=== PATIENT | male | born 1980 | race Caucasian/White ===

== ENCOUNTER 2017-04-23 19:00 | Emergency (ER) | payer OTHER ==
[~2017-04-23] VITALS: Ht 170.2 cm; Wt 80.7 kg
[~2017-04-23 19:00] MED LIST: CEL20 PO; KLO0.5 PO; KLO1 PO; KLONOPIN1 MG PO; KLONOPIN2 MG PO; MIRTAZAPINE15 MG PO; NOR10T PO; PAROXETINE HY37.5 MG PO; PER5 PO; PERCOCET1 TA2 PO; PRILOSEC20 MG PO; PRILOSEC40 MG PO; SULFAMETH/TRIME1 TA1 PO; VIC PO; XAN1 PO; ZOF4 PO; [UNRECOGNIZED DRUG - CODE] PO
[2017-04-23 19:53] LABS: PLATELET COUNT 193 x10^3mcL (130-400); RED CELL DISTRIBUTION WIDTH 13.9 % (11.5-14.5)
[2017-04-23 19:55] LABS: UA SPECIFIC GRAVITY >=1.030 (1.005-1.035); microscopic required? YES; urine erythrocyte 3+ (NEGATIVE)
[2017-04-23 20:02] LABS: CALCIUM 8.3 mg/dL (8.5-10.1); CARBON DIOXIDE 24.4 mmol/L (21-32); CHLORIDE SERUM 105 mmol/L (98-107); CREATININE SERUM 0.8 mg/dL (0.7-1.3); GFR1 > 60 mL/min; GLUCOSE SERUM 109 mg/dL (74-106); POTASSIUM SERUM 3.7 mmol/L (3.5-5.1); SODIUM SERUM 140 mmol/L (136-145)
[2017-04-23 22:11] VITALS: BP 110/69
[2017-04-24] MEDS ORDERED: PEPCID20 MG PO (23:53)
[2017-04-24] MEDS ORDERED: CLONAZEPAM2 MG PO (23:54)
[2017-04-24] MEDS ORDERED: ZOLOFT100 MG PO (23:55)
[2017-04-24] MEDS ORDERED: OMEPRAZOLE40 M1 PO (23:56)
[2017-04-24] MEDS ORDERED: CLARITIN10 MG PO (23:58)
== END 2017-04-23 22:11 | disposition home or self-care (01) ==
LOC: ED 19:00
PROVIDERS: Emergency Medicine
DX: N20.1 Calculus of ureter (principal); Z88.1 Allergy status to other antibiotic agents; Z88.8 Allergy status to other drugs, medicaments and biological substances; Z79.899 Other long term (current) drug therapy
CPT/HCPCS: J2270; J2405; J7030; Q0092

== ENCOUNTER 2017-04-24 18:06 | Inpatient (IN) | payer OTHER ==
[~2017-04-24] VITALS: Ht 170.2 cm; Wt 81.2 kg
[2017-04-24 19:37] LABS: UA SPECIFIC GRAVITY >=1.030 (1.005-1.035); microscopic required? YES; urine erythrocyte 3+ (NEGATIVE)
[2017-04-24 19:59] LABS: BASOPHIL % 0.4 % (0-2); PLATELET COUNT 182 x10^3mcL (130-400)
[2017-04-24 20:12] LABS: CALCIUM 8.2 mg/dL (8.5-10.1); CARBON DIOXIDE 27.4 mmol/L (21-32); CHLORIDE SERUM 107 mmol/L (98-107); CREATININE SERUM 0.7 mg/dL (0.7-1.3); GFR1 > 60 mL/min; GLUCOSE SERUM 104 mg/dL (74-106); POTASSIUM SERUM 3.9 mmol/L (3.5-5.1); SODIUM SERUM 141 mmol/L (136-145)
[2017-04-24 20:17] LABS: ALBUMIN 3.3 g/dL (3.4-5.0); ALKALINE PHOSPHATASE 77 U/L (46-116); ALT/SGPT 25 U/L (16-63); AST/SGOT 14 U/L (15-37); BILIRUBIN TOTAL 0.1 mg/dL (0.20-1.00)
[2017-04-24] MEDS ORDERED: PEPCID20 MG PO (23:53)
[2017-04-24] MEDS ORDERED: CLONAZEPAM2 MG PO (23:54)
[2017-04-24] MEDS ORDERED: ZOLOFT100 MG PO (23:55)
[2017-04-24] MEDS ORDERED: OMEPRAZOLE40 M1 PO (23:56)
[2017-04-24] MEDS ORDERED: CLARITIN10 MG PO (23:58)
[2017-04-25 00:21] LABS: T3 TOTAL 0.85 ng/mL
[2017-04-25 00:36] LABS: MAGNESIUM 1.9 mg/dL (1.8-2.4)
[2017-04-25 00:53] LABS: AMPHETAMINE QUAL UR NONE DETECTED (NEG <=1000)
[2017-04-25 01:42] LABS: T4(THYROXINE) 5.5 ug/dL (4.7-13.3)
[2017-04-25 01:43] LABS: FREE T4 0.88 ng/dL (0.76-1.46)
[2017-04-25 02:28] VITALS: BP 115/79
[2017-04-25 06:28] LABS: CALCIUM 7.9 mg/dL (8.5-10.1); CARBON DIOXIDE 27.5 mmol/L (21-32); CHLORIDE SERUM 108 mmol/L (98-107); CREATININE SERUM 0.6 mg/dL (0.7-1.3); GFR1 > 60 mL/min; GLUCOSE SERUM 83 mg/dL (74-106); POTASSIUM SERUM 4.2 mmol/L (3.5-5.1); SODIUM SERUM 143 mmol/L (136-145)
[2017-04-25 06:54] LABS: BASOPHIL % 0.8 % (0-2); PLATELET COUNT 141 x10^3mcL (130-400); RED CELL DISTRIBUTION WIDTH 13.8 % (11.5-14.5)
[2017-04-25 08:00] VITALS: BP 135/90
[2017-04-25 14:00] VITALS: BP 105/64
[2017-04-25 18:08] VITALS: BP 120/85
[2017-04-25 20:42] VITALS: BP 110/68
[2017-04-26 05:44] VITALS: BP 104/66
[2017-04-26 07:25] LABS: PHOSPHOROUS 3.7 mg/dL (2.5-4.9)
[2017-04-26 07:45] VITALS: BP 104/72
[2017-04-26] MEDS ORDERED: FLO4 PO (15:02)
[2017-04-26] MEDS ORDERED: CYCLOBENZAPRINE5 MG PO (15:03)
[2017-04-26] MEDS ORDERED: PYR100 PO (15:05)
[2017-04-26] MEDS ORDERED: LAC PO (15:05)
[2017-04-26] MEDS ORDERED: MAC100 PO (15:06)
[2017-04-26] MEDS ORDERED: NOR10T PO (15:19)
[2017-04-26 15:35] VITALS: BP 104/72
== END 2017-04-26 15:53 | disposition home or self-care (01) | DRG 465 ==
LOC: ED 18:06 → MU 04-25 01:20 → DU 04-25 01:20 → MU 04-26 13:11
PROVIDERS: Emergency Medicine; Student in an Organized Health Care Education/Training Program; ADMIT Family Medicine
DX: N20.0 Calculus of kidney (principal); N17.0 Acute kidney failure with tubular necrosis; F41.9 Anxiety disorder, unspecified; E78.5 Hyperlipidemia, unspecified; Z68.28 Body mass index [BMI] 28.0-28.9, adult; F43.10 Post-traumatic stress disorder, unspecified; R31.9 Hematuria, unspecified; K21.9 Gastro-esophageal reflux disease without esophagitis; N39.0 Urinary tract infection, site not specified; Z88.8 Allergy status to other drugs, medicaments and biological substances
CPT/HCPCS: 76770; 83880; 84439; J0696; J1170; J2270; J2405; J7030; Q0092; Q0162

== ENCOUNTER 2017-04-26 20:19 | Emergency (ER) | payer OTHER ==
[~2017-04-26 20:19] MED LIST changes: +CLARITIN10 MG PO; +CLONAZEPAM2 MG PO; +CYCLOBENZAPRINE5 MG PO; +FLO4 PO; +LAC PO; +MAC100 PO; +OMEPRAZOLE40 M1 PO; +PEPCID20 MG PO; +PYR100 PO; +ZOLOFT100 MG PO
[2017-04-26 21:10] LABS: microscopic required? YES; urine erythrocyte NEGATIVE (NEGATIVE)
[2017-04-26 21:16] LABS: BASOPHIL % 1.2 % (0-2); PLATELET COUNT 176 x10^3mcL (130-400); RED CELL DISTRIBUTION WIDTH 13.4 % (11.5-14.5)
[2017-04-26 21:22] LABS: CALCIUM 8.3 mg/dL (8.5-10.1); CHLORIDE SERUM 104 mmol/L (98-107); CREATININE SERUM 0.9 mg/dL (0.7-1.3); GFR1 > 60 mL/min; GLUCOSE SERUM 90 mg/dL (74-106); POTASSIUM SERUM 4.2 mmol/L (3.5-5.1); SODIUM SERUM 142 mmol/L (136-145)
[2017-04-26 21:27] LABS: ALBUMIN 3.8 g/dL (3.4-5.0); ALKALINE PHOSPHATASE 79 U/L (46-116); ALT/SGPT 27 U/L (16-63); AST/SGOT 21 U/L (15-37); BILIRUBIN TOTAL 0.36 mg/dL (0.20-1.00); TOTAL PROTEIN, SERUM 6.8 g/dL (6.4-8.2)
[2017-04-26 21:42] VITALS: BP 123/72
== END 2017-04-26 21:42 | disposition home or self-care (01) ==
LOC: ED 20:19
PROVIDERS: Emergency Medicine
DX: N39.0 Urinary tract infection, site not specified (principal); Z88.1 Allergy status to other antibiotic agents; Z88.8 Allergy status to other drugs, medicaments and biological substances
CPT/HCPCS: 36415

== ENCOUNTER 2017-04-29 18:44 | Emergency (ER) | payer OTHER ==
[2017-04-29 19:52] VITALS: BP 124/77
== END 2017-04-29 19:52 | disposition home or self-care (01) ==
LOC: ED 18:44
DX: Z76.0 Encounter for issue of repeat prescription (principal); F11.20 Opioid dependence, uncomplicated; F41.9 Anxiety disorder, unspecified

== ENCOUNTER 2017-04-30 19:20 | Emergency (ER) | payer OTHER ==
[2017-04-30 20:35] LABS: CALCIUM 8.7 mg/dL (8.5-10.1); CARBON DIOXIDE 29.3 mmol/L (21-32); CHLORIDE SERUM 103 mmol/L (98-107); CREATININE SERUM 0.9 mg/dL (0.7-1.3); GFR1 > 60 mL/min; GLUCOSE SERUM 98 mg/dL (74-106); POTASSIUM SERUM 4.1 mmol/L (3.5-5.1); SODIUM SERUM 139 mmol/L (136-145)
[2017-04-30 20:36] LABS: BASOPHIL % 0.7 % (0-2); PLATELET COUNT 164 x10^3mcL (130-400); RED CELL DISTRIBUTION WIDTH 13.3 % (11.5-14.5)
[2017-04-30 20:40] LABS: ALBUMIN 3.8 g/dL (3.4-5.0); ALKALINE PHOSPHATASE 91 U/L (46-116); ALT/SGPT 40 U/L (16-63); AST/SGOT 22 U/L (15-37); BILIRUBIN TOTAL 0.2 mg/dL (0.20-1.00); TOTAL PROTEIN, SERUM 6.7 g/dL (6.4-8.2)
[2017-04-30 20:52] LABS: UA SPECIFIC GRAVITY 1.015 (1.005-1.035); microscopic required? YES; urine erythrocyte 3+ (NEGATIVE)
[2017-04-30 23:55] VITALS: BP 112/60
== END 2017-04-30 23:18 | disposition home or self-care (01) ==
LOC: ED 19:20
PROVIDERS: Specialist
DX: N12 Tubulo-interstitial nephritis, not specified as acute or chronic (principal); M46.92 Unspecified inflammatory spondylopathy, cervical region; Z90.49 Acquired absence of other specified parts of digestive tract; Z88.1 Allergy status to other antibiotic agents; Z87.442 Personal history of urinary calculi; Z79.899 Other long term (current) drug therapy
CPT/HCPCS: J0696; J2270; J2405; J3010; J7030

== ENCOUNTER 2017-05-18 07:08 | Emergency (ER) | payer OTHER ==
[~2017-05-18] VITALS: Ht 170.2 cm; Wt 74.8 kg
[2017-05-18 07:35] VITALS: BP 143/94
== END 2017-05-18 08:17 | disposition home or self-care (01) ==
LOC: ED 07:08
DX: M54.5 Low back pain (principal); R10.32 Left lower quadrant pain; Z88.1 Allergy status to other antibiotic agents; Z88.8 Allergy status to other drugs, medicaments and biological substances

== ENCOUNTER 2017-05-19 20:48 | Emergency (ER) | payer OTHER ==
[2017-05-20 00:11] LABS: BASOPHIL % 0.8 % (0-2); PLATELET COUNT 202 x10^3mcL (130-400); RED CELL DISTRIBUTION WIDTH 12.7 % (11.5-14.5)
[2017-05-20 00:19] LABS: microscopic required? YES; urine erythrocyte 3+ (NEGATIVE)
[2017-05-20 00:33] LABS: CALCIUM 8.6 mg/dL (8.5-10.1); CARBON DIOXIDE 27.1 mmol/L (21-32); CHLORIDE SERUM 105 mmol/L (98-107); CREATININE SERUM 0.9 mg/dL (0.7-1.3); GFR1 > 60 mL/min; GLUCOSE SERUM 96 mg/dL (74-106); POTASSIUM SERUM 4.1 mmol/L (3.5-5.1); SODIUM SERUM 142 mmol/L (136-145)
[2017-05-20 00:37] LABS: ALBUMIN 4.1 g/dL (3.4-5.0); ALKALINE PHOSPHATASE 95 U/L (46-116); ALT/SGPT 26 U/L (16-63); AST/SGOT 12 U/L (15-37); BILIRUBIN TOTAL 0.2 mg/dL (0.20-1.00); CHOLESTEROL 137 mg/dL (<200); LIPASE 162 IU/L (73-393); TOTAL PROTEIN, SERUM 7.2 g/dL (6.4-8.2)
[2017-05-20 00:39] LABS: TRIGLYCERIDES 230 mg/dL (<150)
[2017-05-20 00:40] LABS: HDL CHOLESTEROL 34 mg/dL (40-60)
[2017-05-20 00:41] LABS: T3 TOTAL 0.9 ng/mL
[2017-05-20 00:48] LABS: FREE T4 0.95 ng/dL (0.76-1.46); T4(THYROXINE) 5.5 ug/dL (4.7-13.3)
[2017-05-20 02:05] LABS: AMPHETAMINE QUAL UR NONE DETECTED (NEG <=1000)
[2017-05-20 03:08] VITALS: BP 125/80
== END 2017-05-20 03:08 | disposition home or self-care (01) ==
LOC: ED 20:48
PROVIDERS: Specialist
DX: N10 Acute pyelonephritis (principal); F99 Mental disorder, not otherwise specified; F43.10 Post-traumatic stress disorder, unspecified; Z88.1 Allergy status to other antibiotic agents; Z79.2 Long term (current) use of antibiotics
CPT/HCPCS: 83880; 84439; J1170; J1956; J2405; J3010; J7030

== ENCOUNTER 2017-05-21 20:26 | Emergency (ER) | payer OTHER ==
[~2017-05-21] VITALS: Ht 170.2 cm; Wt 77.1 kg
[2017-05-21 21:24] LABS: UA SPECIFIC GRAVITY 1.015 (1.005-1.035); microscopic required? YES; urine erythrocyte 3+ (NEGATIVE)
[2017-05-21 22:15] VITALS: BP 133/66
== END 2017-05-21 22:15 | disposition home or self-care (01) ==
LOC: ED 20:26
PROVIDERS: Emergency Medicine
DX: R10.30 Lower abdominal pain, unspecified (principal); R31.9 Hematuria, unspecified; R30.0 Dysuria; F99 Mental disorder, not otherwise specified; F43.10 Post-traumatic stress disorder, unspecified; Z88.1 Allergy status to other antibiotic agents; Z88.6 Allergy status to analgesic agent; Z79.899 Other long term (current) drug therapy
CPT/HCPCS: J1170; J2405; J7030

== ENCOUNTER 2017-05-28 18:43 | Emergency (ER) | payer OTHER ==
[2017-05-28 20:50] VITALS: BP 128/70
== END 2017-05-28 20:50 | disposition home or self-care (01) ==
LOC: ED 18:43
DX: F41.9 Anxiety disorder, unspecified (principal); Z88.1 Allergy status to other antibiotic agents; Z88.8 Allergy status to other drugs, medicaments and biological substances; F11.20 Opioid dependence, uncomplicated; F43.10 Post-traumatic stress disorder, unspecified; F19.20 Other psychoactive substance dependence, uncomplicated

== ENCOUNTER 2017-05-30 08:35 | Emergency (ER) | payer OTHER ==
[~2017-05-30] VITALS: Ht 170.2 cm; Wt 79.8 kg
[2017-05-30 08:43] VITALS: BP 141/89
[2017-05-30 09:39] LABS: CALCIUM 8.7 mg/dL (8.5-10.1); CARBON DIOXIDE 22.5 mmol/L (21-32); CHLORIDE SERUM 103 mmol/L (98-107); CREATININE SERUM 0.9 mg/dL (0.7-1.3); GFR1 > 60 mL/min; GLUCOSE SERUM 109 mg/dL (74-106); POTASSIUM SERUM 4.2 mmol/L (3.5-5.1); SODIUM SERUM 137 mmol/L (136-145)
[2017-05-30 09:43] LABS: ALBUMIN 4.1 g/dL (3.4-5.0); ALKALINE PHOSPHATASE 92 U/L (46-116); ALT/SGPT 87 U/L (16-63); AMYLASE 112 U/L (25-115); AST/SGOT 51 U/L (15-37); BASOPHIL % 0.5 % (0-2); BILIRUBIN TOTAL 0.24 mg/dL (0.20-1.00); LIPASE 518 IU/L (73-393); PLATELET COUNT 154 x10^3mcL (130-400); RED CELL DISTRIBUTION WIDTH 13.1 % (11.5-14.5); TOTAL PROTEIN, SERUM 7.3 g/dL (6.4-8.2)
[2017-05-30 09:50] LABS: microscopic required? YES; urine erythrocyte 3+ (NEGATIVE)
== END 2017-05-30 09:40 | disposition left against medical advice (07) ==
LOC: ED 08:35
PROVIDERS: Emergency Medicine
DX: R10.9 Unspecified abdominal pain (principal); F43.10 Post-traumatic stress disorder, unspecified; F32.9 Major depressive disorder, single episode, unspecified; G43.909 Migraine, unspecified, not intractable, without status migrainosus; Z88.1 Allergy status to other antibiotic agents; Z88.6 Allergy status to analgesic agent; X58.XXXA Exposure to other specified factors, initial encounter; Y93.89 Activity, other specified; Y92.89 Other specified places as the place of occurrence of the external cause; Y99.8 Other external cause status
CPT/HCPCS: 36415

== ENCOUNTER 2017-05-30 17:02 | Emergency (ER) | payer OTHER ==
[~2017-05-30] VITALS: Ht 170.2 cm; Wt 79.4 kg
[2017-05-30 17:07] VITALS: BP 133/69
== END 2017-05-30 18:32 | disposition left against medical advice (07) ==
LOC: ED 17:02
DX: F17.200 Nicotine dependence, unspecified, uncomplicated (principal); G89.29 Other chronic pain; G43.909 Migraine, unspecified, not intractable, without status migrainosus; Z88.6 Allergy status to analgesic agent

== ENCOUNTER 2017-06-04 02:31 | Emergency (ER) | payer OTHER ==
[2017-06-04 04:14] VITALS: BP 95/62
== END 2017-06-04 04:34 | disposition home or self-care (01) ==
LOC: ED 02:31
DX: G89.29 Other chronic pain (principal); R10.9 Unspecified abdominal pain; M19.90 Unspecified osteoarthritis, unspecified site; Z88.1 Allergy status to other antibiotic agents; Z88.8 Allergy status to other drugs, medicaments and biological substances

== ENCOUNTER 2017-06-06 00:58 | Emergency (ER) | payer OTHER ==
[2017-06-06 01:26] LABS: BASOPHIL % 0.5 % (0-2); PLATELET COUNT 182 x10^3mcL (130-400); RED CELL DISTRIBUTION WIDTH 13.2 % (11.5-14.5)
[2017-06-06 01:37] LABS: CALCIUM 8.3 mg/dL (8.5-10.1); CARBON DIOXIDE 30.9 mmol/L (21-32); CHLORIDE SERUM 105 mmol/L (98-107); CREATININE SERUM 0.8 mg/dL (0.7-1.3); GFR1 > 60 mL/min; GLUCOSE SERUM 112 mg/dL (74-106); POTASSIUM SERUM 3.7 mmol/L (3.5-5.1); SODIUM SERUM 138 mmol/L (136-145)
[2017-06-06 01:41] LABS: ALBUMIN 3.6 g/dL (3.4-5.0); ALKALINE PHOSPHATASE 92 U/L (46-116); ALT/SGPT 63 U/L (16-63); AMYLASE 79 U/L (25-115); AST/SGOT 21 U/L (15-37); LIPASE 331 IU/L (73-393); TOTAL PROTEIN, SERUM 6.8 g/dL (6.4-8.2)
[2017-06-06 02:06] VITALS: BP 129/90
== END 2017-06-06 02:06 | disposition home or self-care (01) ==
LOC: ED 00:58
PROVIDERS: Emergency Medicine
DX: Z76.5 Malingerer [conscious simulation] (principal); Z88.1 Allergy status to other antibiotic agents; Z88.8 Allergy status to other drugs, medicaments and biological substances
CPT/HCPCS: 36415

== ENCOUNTER 2017-07-04 18:34 | Emergency (ER) | payer OTHER ==
[~2017-07-04] VITALS: Ht 170.2 cm; Wt 75.3 kg
[2017-07-04 19:51] VITALS: BP 134/93
== END 2017-07-04 19:51 | disposition home or self-care (01) ==
LOC: ED 18:34
DX: I10 Essential (primary) hypertension (principal); G89.29 Other chronic pain; Z88.1 Allergy status to other antibiotic agents; Z88.8 Allergy status to other drugs, medicaments and biological substances

== ENCOUNTER 2017-07-07 16:59 | Emergency (ER) | payer OTHER ==
[~2017-07-07] VITALS: Ht 170.2 cm; Wt 75.3 kg
[2017-07-07 17:39] VITALS: BP 141/67
== END 2017-07-07 17:39 | disposition home or self-care (01) ==
LOC: ED 16:59
DX: R10.9 Unspecified abdominal pain (principal); R31.9 Hematuria, unspecified; G43.909 Migraine, unspecified, not intractable, without status migrainosus; G89.29 Other chronic pain; M54.9 Dorsalgia, unspecified; M54.2 Cervicalgia; M47.9 Spondylosis, unspecified; K57.90 Diverticulosis of intestine, part unspecified, without perforation or abscess without bleeding; Z88.1 Allergy status to other antibiotic agents; Z88.8 Allergy status to other drugs, medicaments and biological substances; Z87.442 Personal history of urinary calculi

== ENCOUNTER 2018-02-09 12:38 | Emergency (ER) | payer OTHER ==
[~2018-02-09] VITALS: Ht 170.2 cm; Wt 71.2 kg
[2018-02-09 13:42] VITALS: BP 118/64
== END 2018-02-09 13:42 | disposition home or self-care (01) ==
LOC: ED 12:38
DX: N20.0 Calculus of kidney (principal); R31.9 Hematuria, unspecified; R30.0 Dysuria; Z90.89 Acquired absence of other organs; Z88.5 Allergy status to narcotic agent; Z88.6 Allergy status to analgesic agent; Z88.0 Allergy status to penicillin

== ENCOUNTER 2018-02-20 15:28 | Emergency (ER) | payer OTHER ==
[~2018-02-20] VITALS: Ht 170.2 cm; Wt 69.8 kg
[2018-02-20 15:48] VITALS: Ht 170.2 cm; Wt 69.8 kg
[2018-02-20 17:09] LABS: BASOPHIL % 0.6 % (0-2); CALCIUM 8.1 mg/dL (8.5-10.1); CARBON DIOXIDE 28.2 mmol/L (21-32); CHLORIDE SERUM 105 mmol/L (98-107); CREATININE SERUM 0.8 mg/dL (0.7-1.3); GFR1 > 60 mL/min; GLUCOSE SERUM 124 mg/dL (74-106); PLATELET COUNT 157 x10^3mcL (130-400); POTASSIUM SERUM 3.5 mmol/L (3.5-5.1); SODIUM SERUM 140 mmol/L (136-145)
[2018-02-20 17:11] LABS: UA SPECIFIC GRAVITY 1.015 (1.005-1.035); microscopic required? YES; urine erythrocyte 3+ (NEGATIVE)
[2018-02-20 17:17] LABS: ALBUMIN 3.5 g/dL (3.4-5.0); ALKALINE PHOSPHATASE 80 U/L (46-116); ALT/SGPT 31 U/L (16-63); AST/SGOT 17 U/L (15-37); BILIRUBIN TOTAL 0.27 mg/dL (0.20-1.00); LIPASE 85 IU/L (73-393)
[2018-02-20 18:59] VITALS: BP 102/55
== END 2018-02-20 18:59 | disposition home or self-care (01) ==
LOC: ED 15:28
PROVIDERS: Emergency Medicine
DX: R10.32 Left lower quadrant pain (principal); R31.0 Gross hematuria; Z88.1 Allergy status to other antibiotic agents; Z88.8 Allergy status to other drugs, medicaments and biological substances
CPT/HCPCS: 36415; Q0162

== ENCOUNTER 2018-03-08 10:31 | Emergency (ER) | payer OTHER ==
[~2018-03-08] VITALS: Ht 170.2 cm; Wt 69.4 kg
[2018-03-08 10:41] VITALS: Ht 170.2 cm; Wt 69.4 kg
[2018-03-08 11:49] LABS: BASOPHIL % 0.8 % (0-2); PLATELET COUNT 200 x10^3mcL (130-400); RED CELL DISTRIBUTION WIDTH 13.8 % (11.5-14.5)
[2018-03-08 11:59] LABS: CALCIUM 8.8 mg/dL (8.5-10.1); CARBON DIOXIDE 29.6 mmol/L (21-32); CHLORIDE SERUM 113 mmol/L (98-107); CREATININE SERUM 0.8 mg/dL (0.7-1.3); GFR1 > 60 mL/min; GLUCOSE SERUM 97 mg/dL (74-106); POTASSIUM SERUM 4.3 mmol/L (3.5-5.1); SODIUM SERUM 143 mmol/L (136-145)
[2018-03-08 12:03] LABS: ALBUMIN 4.4 g/dL (3.4-5.0); ALKALINE PHOSPHATASE 79 U/L (46-116); ALT/SGPT 30 U/L (16-63); AST/SGOT 18 U/L (15-37); BILIRUBIN TOTAL 0.3 mg/dL (0.20-1.00); LIPASE 526 IU/L (73-393); TOTAL PROTEIN, SERUM 7.3 g/dL (6.4-8.2)
[2018-03-08 12:34] LABS: microscopic required? YES; urine erythrocyte 3+ (NEGATIVE)
[2018-03-08 13:44] VITALS: BP 135/79
== END 2018-03-08 13:44 | disposition home or self-care (01) ==
LOC: ED 10:31
PROVIDERS: Emergency Medicine
DX: R10.32 Left lower quadrant pain (principal); Z88.0 Allergy status to penicillin; Z88.6 Allergy status to analgesic agent; Z88.5 Allergy status to narcotic agent
CPT/HCPCS: J1200; J2550; J7030

== ENCOUNTER 2018-03-19 14:41 | Emergency (ER) | payer OTHER ==
[~2018-03-19] VITALS: Ht 170.2 cm; Wt 68.9 kg
[2018-03-19 14:48] VITALS: BP 136/80; Ht 170.2 cm; Wt 68.9 kg
== END 2018-03-19 16:40 | disposition left against medical advice (07) ==
LOC: ED 14:41
DX: R10.9 Unspecified abdominal pain (principal); F11.10 Opioid abuse, uncomplicated; R11.0 Nausea; R19.7 Diarrhea, unspecified; K57.90 Diverticulosis of intestine, part unspecified, without perforation or abscess without bleeding; M46.82 Other specified inflammatory spondylopathies, cervical region; Z88.0 Allergy status to penicillin; Z88.5 Allergy status to narcotic agent; Z88.8 Allergy status to other drugs, medicaments and biological substances

== ENCOUNTER 2018-03-20 09:26 | Emergency (ER) | payer OTHER ==
[~2018-03-20] VITALS: Ht 170.2 cm; Wt 71.9 kg
[2018-03-20 09:36] VITALS: BP 118/81; Ht 170.2 cm; Wt 71.9 kg
== END 2018-03-20 10:56 | disposition home or self-care (01) ==
LOC: ED 09:26
DX: M79.641 Pain in right hand (principal); G43.909 Migraine, unspecified, not intractable, without status migrainosus; Z88.1 Allergy status to other antibiotic agents; Z88.8 Allergy status to other drugs, medicaments and biological substances; Z88.5 Allergy status to narcotic agent; W01.0XXA Fall on same level from slipping, tripping and stumbling without subsequent striking against object, initial encounter; Y93.89 Activity, other specified; Y92.89 Other specified places as the place of occurrence of the external cause; Y99.8 Other external cause status
CPT/HCPCS: Q0092

== ENCOUNTER 2018-05-18 11:33 | Emergency (ER) | payer OTHER ==
[~2018-05-18] VITALS: Ht 170.2 cm; Wt 70.8 kg
[2018-05-18 11:36] VITALS: BP 136/84; Ht 170.2 cm; Wt 70.8 kg
== END 2018-05-18 12:19 | disposition home or self-care (01) ==
LOC: ED 11:33
DX: Z76.0 Encounter for issue of repeat prescription (principal); G89.29 Other chronic pain; F11.20 Opioid dependence, uncomplicated; F17.210 Nicotine dependence, cigarettes, uncomplicated; K21.9 Gastro-esophageal reflux disease without esophagitis; F32.9 Major depressive disorder, single episode, unspecified; Z71.6 Tobacco abuse counseling; Z88.1 Allergy status to other antibiotic agents; Z88.6 Allergy status to analgesic agent
CPT/HCPCS: 99406

== ENCOUNTER 2018-11-03 19:16 | Emergency (ER) | payer OTHER ==
[~2018-11-03] VITALS: Ht 170.2 cm; Wt 72.6 kg
[2018-11-03 20:06] VITALS: Ht 170.2 cm; Wt 72.6 kg
[2018-11-03 21:34] VITALS: BP 133/74
== END 2018-11-03 21:35 | disposition home or self-care (01) ==
LOC: ED 19:16
DX: L02.414 Cutaneous abscess of left upper limb (principal); F41.9 Anxiety disorder, unspecified; F32.9 Major depressive disorder, single episode, unspecified; G89.29 Other chronic pain; M54.9 Dorsalgia, unspecified; M54.2 Cervicalgia; K21.9 Gastro-esophageal reflux disease without esophagitis; Z88.6 Allergy status to analgesic agent; Z88.0 Allergy status to penicillin; Z87.442 Personal history of urinary calculi; Z98.890 Other specified postprocedural states

== ENCOUNTER 2018-11-05 14:06 | Emergency (ER) | payer OTHER ==
[~2018-11-05] VITALS: Ht 170.2 cm; Wt 73.5 kg
[2018-11-05 14:28] VITALS: BP 115/70; Ht 170.2 cm; Wt 73.5 kg
== END 2018-11-05 17:18 | disposition home or self-care (01) ==
LOC: ED 14:06
DX: L03.114 Cellulitis of left upper limb (principal)

== ENCOUNTER 2018-11-07 01:37 | Inpatient (IN) | payer OTHER ==
[~2018-11-07] VITALS: Ht 170.2 cm; Wt 75.3 kg
[2018-11-07 01:51] VITALS: Ht 170.2 cm; Wt 75.3 kg
[2018-11-07 02:55] LABS: CALCIUM 8.1 mg/dL (8.5-10.1); CARBON DIOXIDE 24.6 mmol/L (21-32); CHLORIDE SERUM 102 mmol/L (98-107); CREATININE SERUM 0.9 mg/dL (0.7-1.3); GFR1 > 60 mL/min; GLUCOSE SERUM 109 mg/dL (74-106); POTASSIUM SERUM 3.2 mmol/L (3.5-5.1); SODIUM SERUM 134 mmol/L (136-145)
[2018-11-07 03:10] LABS: ALKALINE PHOSPHATASE 80 U/L (46-116); ALT/SGPT 36 U/L (16-63); AST/SGOT 31 U/L (15-37); TOTAL PROTEIN, SERUM 6.5 g/dL (6.4-8.2)
[2018-11-07 03:11] LABS: BASOPHIL % 0.4 % (0-2); PLATELET COUNT 201 x10^3mcL (130-400); RED CELL DISTRIBUTION WIDTH 12.4 % (11.5-14.5)
[2018-11-07 06:01] LABS: PHOSPHOROUS 4.2 mg/dL (2.5-4.9)
[2018-11-07 06:03] LABS: CHOLESTEROL/HDL RATIO 3.4
[2018-11-07 06:09] LABS: FREE T4 1.11 ng/dL (0.76-1.46); FREE THYROXINE INDEX 2.3 ug/dL (1.4-4.5); T4(THYROXINE) 6.1 ug/dL (4.7-13.3)
[2018-11-07 06:11] LABS: T3 TOTAL 0.83 ng/mL
[2018-11-07] MEDS ORDERED: KEFLEX250 M1 (06:31)
[2018-11-07] MEDS ORDERED: KLONOPIN2 MG PO (06:32)
[2018-11-07] MEDS ORDERED: WELLBUTRIN XL300 M1 PO (06:32)
[2018-11-07] MEDS ORDERED: BAC (06:32)
[2018-11-07 08:25] LABS: microscopic required? NO
[2018-11-07 09:08] LABS: UA SPECIFIC GRAVITY >=1.030 (1.005-1.035); urine erythrocyte NEGATIVE (NEGATIVE)
[2018-11-07 09:17] LABS: AMPHETAMINE QUAL UR NONE DETECTED (See below)
[2018-11-07 11:32] VITALS: BP 115/67
[2018-11-07 21:05] VITALS: BP 122/76
[2018-11-08 06:43] LABS: CALCIUM 8.3 mg/dL (8.5-10.1); CARBON DIOXIDE 24.4 mmol/L (21-32); CHLORIDE SERUM 106 mmol/L (98-107); CREATININE SERUM 0.7 mg/dL (0.7-1.3); GFR1 > 60 mL/min; GLUCOSE SERUM 93 mg/dL (74-106); PHOSPHOROUS 2.7 mg/dL (2.5-4.9); POTASSIUM SERUM 3.9 mmol/L (3.5-5.1); SODIUM SERUM 140 mmol/L (136-145)
[2018-11-08 07:14] LABS: BASOPHIL % 0.6 % (0-2); PLATELET COUNT 190 x10^3mcL (130-400); RED CELL DISTRIBUTION WIDTH 13.2 % (11.5-14.5)
[2018-11-08 10:27] VITALS: BP 105/73
[2018-11-08 17:35] VITALS: BP 109/65
[2018-11-08 21:20] VITALS: BP 111/68
[2018-11-09 04:53] VITALS: BP 100/61
[2018-11-09 06:31] LABS: CALCIUM 8.1 mg/dL (8.5-10.1); CARBON DIOXIDE 27.8 mmol/L (21-32); CHLORIDE SERUM 107 mmol/L (98-107); CREATININE SERUM 0.7 mg/dL (0.7-1.3); GFR1 > 60 mL/min; GLUCOSE SERUM 94 mg/dL (74-106); PHOSPHOROUS 3.4 mg/dL (2.5-4.9); POTASSIUM SERUM 3.9 mmol/L (3.5-5.1); SODIUM SERUM 142 mmol/L (136-145)
[2018-11-09 06:57] LABS: BASOPHIL % 0.9 % (0-2); PLATELET COUNT 193 x10^3mcL (130-400); RED CELL DISTRIBUTION WIDTH 13.2 % (11.5-14.5)
[2018-11-09 09:45] VITALS: BP 113/77
[2018-11-09 09:47] VITALS: BP 123/71
[2018-11-09 17:25] VITALS: BP 119/65
[2018-11-09 20:32] VITALS: BP 104/59
[2018-11-10 06:07] VITALS: BP 94/59
[2018-11-10 06:52] LABS: BASOPHIL % 1.1 % (0-2); PLATELET COUNT 239 x10^3mcL (130-400); RED CELL DISTRIBUTION WIDTH 13.3 % (11.5-14.5)
[2018-11-10 07:00] LABS: CALCIUM 8.7 mg/dL (8.5-10.1); CARBON DIOXIDE 29.4 mmol/L (21-32); CHLORIDE SERUM 103 mmol/L (98-107); GFR1 > 60 mL/min; GLUCOSE SERUM 100 mg/dL (74-106); MAGNESIUM 2.1 mg/dL (1.8-2.4); PHOSPHOROUS 4.5 mg/dL (2.5-4.9); POTASSIUM SERUM 3.9 mmol/L (3.5-5.1); SODIUM SERUM 139 mmol/L (136-145)
[2018-11-10 09:29] VITALS: BP 98/62
[2018-11-10] MEDS ORDERED: CLINDAMYCIN HC300 MG PO (09:45)
[2018-11-10] MEDS ORDERED: LAC PO (09:46)
[2018-11-10 15:33] VITALS: BP 98/62
[2018-11-10 16:44] VITALS: BP 106/57
== END 2018-11-10 20:41 | disposition home or self-care (01) | DRG 383 ==
LOC: ED 01:37 → MU 05:40
PROVIDERS: Emergency Medicine; Family Medicine; Surgery; ADMIT Internal Medicine
PROC: 0X9D0ZZ Drainage of Right Lower Arm, Open Approach (ICD-10-PCS; principal; 2018-11-08 09:30)
DX: L02.414 Cutaneous abscess of left upper limb (principal); N17.0 Acute kidney failure with tubular necrosis; R56.9 Unspecified convulsions; F32.9 Major depressive disorder, single episode, unspecified; F43.10 Post-traumatic stress disorder, unspecified; F41.9 Anxiety disorder, unspecified; G43.909 Migraine, unspecified, not intractable, without status migrainosus; G89.29 Other chronic pain; M54.9 Dorsalgia, unspecified; M19.90 Unspecified osteoarthritis, unspecified site; E83.51 Hypocalcemia; F19.10 Other psychoactive substance abuse, uncomplicated; F31.9 Bipolar disorder, unspecified; E87.6 Hypokalemia; F11.10 Opioid abuse, uncomplicated; E44.0 Moderate protein-calorie malnutrition; K21.9 Gastro-esophageal reflux disease without esophagitis; Z87.442 Personal history of urinary calculi; Z88.6 Allergy status to analgesic agent; Z88.1 Allergy status to other antibiotic agents; Z90.49 Acquired absence of other specified parts of digestive tract; Z83.3 Family history of diabetes mellitus; Z80.9 Family history of malignant neoplasm, unspecified; Z68.25 Body mass index [BMI] 25.0-25.9, adult
CPT/HCPCS: 83880; 84439; J0690; J1170; J1885; J2001; J2060; J2250; J2270; J2405; J3010; J3370; J3490; J7030; Q0092

== ENCOUNTER 2018-11-25 04:48 | Emergency (ER) | payer OTHER ==
[~2018-11-25] VITALS: Ht 170.2 cm; Wt 72.6 kg
[~2018-11-25 04:48] MED LIST changes: +BAC; +CLINDAMYCIN HC300 MG PO; +KEFLEX250 M1; +WELLBUTRIN XL300 M1 PO
[2018-11-25 04:57] VITALS: Ht 170.2 cm; Wt 72.6 kg
[2018-11-25 06:46] VITALS: BP 105/68
== END 2018-11-25 06:46 | disposition home or self-care (01) ==
LOC: ED 04:48
DX: S60.221A Contusion of right hand, initial encounter (principal); Z90.89 Acquired absence of other organs; Z88.0 Allergy status to penicillin; Z88.6 Allergy status to analgesic agent; W18.39XA Other fall on same level, initial encounter; Y93.89 Activity, other specified; Y92.89 Other specified places as the place of occurrence of the external cause; Y99.8 Other external cause status
CPT/HCPCS: J2270

== ENCOUNTER 2018-12-20 16:43 | Emergency (ER) | payer OTHER ==
[~2018-12-20] VITALS: Ht 170.2 cm; Wt 79.8 kg
[2018-12-20 16:44] VITALS: BP 136/93; Ht 170.2 cm; Wt 79.8 kg
== END 2018-12-20 17:39 | disposition left against medical advice (07) ==
LOC: ED 16:43
DX: Z53.21 Procedure and treatment not carried out due to patient leaving prior to being seen by health care provider (principal)

== ENCOUNTER 2018-12-21 12:24 | Emergency (ER) | payer OTHER ==
[~2018-12-21] VITALS: Ht 170.2 cm; Wt 78.5 kg
[2018-12-21 12:35] VITALS: Ht 170.2 cm; Wt 78.5 kg
[2018-12-21 14:14] VITALS: BP 134/86
== END 2018-12-21 14:14 | disposition home or self-care (01) ==
LOC: ED 12:24
DX: S09.8XXA Other specified injuries of head, initial encounter (principal); F31.9 Bipolar disorder, unspecified; F41.9 Anxiety disorder, unspecified; G43.909 Migraine, unspecified, not intractable, without status migrainosus; G89.29 Other chronic pain; K21.9 Gastro-esophageal reflux disease without esophagitis; F11.20 Opioid dependence, uncomplicated; M19.90 Unspecified osteoarthritis, unspecified site; Z88.1 Allergy status to other antibiotic agents; Z90.89 Acquired absence of other organs; Z87.442 Personal history of urinary calculi; W18.39XA Other fall on same level, initial encounter; Y93.89 Activity, other specified; Y92.89 Other specified places as the place of occurrence of the external cause; Y99.8 Other external cause status

== ENCOUNTER 2019-07-13 22:52 | Emergency (ER) | payer OTHER ==
[~2019-07-13] VITALS: Ht 170.2 cm; Wt 72.6 kg
[2019-07-13 22:57] VITALS: BP 115/69; Ht 170.2 cm; Wt 72.6 kg
== END 2019-07-14 00:23 | disposition left against medical advice (07) ==
LOC: ED 22:52
DX: R10.30 Lower abdominal pain, unspecified (principal); M54.5 Low back pain; R19.7 Diarrhea, unspecified; R11.2 Nausea with vomiting, unspecified; F31.9 Bipolar disorder, unspecified; G43.909 Migraine, unspecified, not intractable, without status migrainosus; K21.9 Gastro-esophageal reflux disease without esophagitis; Z88.1 Allergy status to other antibiotic agents; Z90.89 Acquired absence of other organs; Z87.442 Personal history of urinary calculi

== ENCOUNTER 2019-10-03 08:12 | Emergency (ER) | payer OTHER ==
[~2019-10-03] VITALS: Ht 170.2 cm; Wt 661.8 kg
[2019-10-03 08:16] VITALS: Ht 170.2 cm; Wt 661.8 kg
[2019-10-03 09:00] VITALS: BP 135/89
== END 2019-10-03 09:00 | disposition home or self-care (01) ==
LOC: ED 08:12
DX: Z76.0 Encounter for issue of repeat prescription (principal); F31.9 Bipolar disorder, unspecified; G43.909 Migraine, unspecified, not intractable, without status migrainosus; K21.9 Gastro-esophageal reflux disease without esophagitis; Z88.6 Allergy status to analgesic agent; Z87.442 Personal history of urinary calculi; Z88.1 Allergy status to other antibiotic agents

== ENCOUNTER 2019-10-14 01:55 | Emergency (ER) | payer OTHER ==
[~2019-10-14] VITALS: Ht 170.2 cm; Wt 71.3 kg
[2019-10-14 01:58] VITALS: Ht 170.2 cm; Wt 71.3 kg
[2019-10-14 03:01] VITALS: BP 133/89
== END 2019-10-14 03:01 | disposition home or self-care (01) ==
LOC: ED 01:55
DX: F32.9 Major depressive disorder, single episode, unspecified (principal); G43.909 Migraine, unspecified, not intractable, without status migrainosus; G89.29 Other chronic pain; K21.9 Gastro-esophageal reflux disease without esophagitis; Z76.0 Encounter for issue of repeat prescription; Z88.1 Allergy status to other antibiotic agents; Z87.442 Personal history of urinary calculi; Z90.89 Acquired absence of other organs

== ENCOUNTER 2019-10-30 12:48 | Emergency (ER) | payer OTHER ==
[~2019-10-30] VITALS: Ht 170.2 cm; Wt 70.8 kg
[2019-10-30 13:09] VITALS: BP 130/90; Ht 170.2 cm; Wt 70.8 kg
== END 2019-10-30 14:15 | disposition left against medical advice (07) ==
LOC: ED 12:48
DX: Z53.21 Procedure and treatment not carried out due to patient leaving prior to being seen by health care provider (principal)

== ENCOUNTER 2019-11-28 06:02 | Emergency (ER) | payer OTHER ==
[~2019-11-28] VITALS: Ht 170.2 cm; Wt 71.3 kg
[2019-11-28 06:03] VITALS: Ht 170.2 cm; Wt 71.3 kg
[2019-11-28 07:02] VITALS: BP 143/89
== END 2019-11-28 07:02 | disposition home or self-care (01) ==
LOC: ED 06:02
DX: F41.9 Anxiety disorder, unspecified (principal); K21.9 Gastro-esophageal reflux disease without esophagitis; G89.29 Other chronic pain; M54.9 Dorsalgia, unspecified; M54.2 Cervicalgia; Z87.442 Personal history of urinary calculi; Z88.6 Allergy status to analgesic agent

== ENCOUNTER 2019-11-29 10:17 | Emergency (ER) | payer OTHER ==
[~2019-11-29] VITALS: Ht 170.2 cm; Wt 68.9 kg
[2019-11-29 10:31] VITALS: BP 161/93; Ht 170.2 cm; Wt 68.9 kg
== END 2019-11-29 12:28 | disposition home or self-care (01) ==
LOC: ED 10:17
DX: F41.9 Anxiety disorder, unspecified (principal); F11.23 Opioid dependence with withdrawal; G47.00 Insomnia, unspecified; G89.29 Other chronic pain; G43.909 Migraine, unspecified, not intractable, without status migrainosus; K21.9 Gastro-esophageal reflux disease without esophagitis; Z87.442 Personal history of urinary calculi; Z90.89 Acquired absence of other organs; Z88.1 Allergy status to other antibiotic agents

== ENCOUNTER 2019-11-30 02:40 | Emergency (ER) | payer OTHER ==
[~2019-11-30] VITALS: Ht 170.2 cm; Wt 68.9 kg
[2019-11-30 02:45] VITALS: Ht 170.2 cm; Wt 68.9 kg
[2019-11-30 05:50] VITALS: BP 129/80
== END 2019-11-30 05:50 | disposition home or self-care (01) ==
LOC: ED 02:40
DX: F11.23 Opioid dependence with withdrawal (principal); G43.909 Migraine, unspecified, not intractable, without status migrainosus; G89.29 Other chronic pain; K21.9 Gastro-esophageal reflux disease without esophagitis; Z90.89 Acquired absence of other organs; Z87.442 Personal history of urinary calculi; Z88.1 Allergy status to other antibiotic agents; Z88.6 Allergy status to analgesic agent

== ENCOUNTER 2020-06-05 10:30 | Emergency (ER) | payer OTHER ==
[~2020-06-05] VITALS: Ht 170.2 cm; Wt 68.9 kg
[2020-06-05 10:34] VITALS: Ht 170.2 cm; Wt 68.9 kg
[2020-06-05 16:08] VITALS: BP 127/76
== END 2020-06-05 16:08 | disposition home or self-care (01) ==
LOC: ED 10:30
DX: R07.89 Other chest pain (principal); G43.909 Migraine, unspecified, not intractable, without status migrainosus; K21.9 Gastro-esophageal reflux disease without esophagitis; Z88.6 Allergy status to analgesic agent; Z88.1 Allergy status to other antibiotic agents; Z87.442 Personal history of urinary calculi; V49.49XA Driver injured in collision with other motor vehicles in traffic accident, initial encounter; Y93.I9 Activity, other involving external motion; Y92.413 State road as the place of occurrence of the external cause; Y99.8 Other external cause status
CPT/HCPCS: J1885; Q0092

== ENCOUNTER 2020-07-05 23:51 | Emergency (ER) | payer OTHER ==
[~2020-07-05] VITALS: Ht 170.2 cm; Wt 72.6 kg
[2020-07-05 23:59] VITALS: Ht 170.2 cm; Wt 72.6 kg
[2020-07-06 02:11] LABS: BASOPHIL % 0.7 % (0-2); PLATELET COUNT 161 x10^3mcL (130-400); RED CELL DISTRIBUTION WIDTH 13.9 % (11.5-14.5)
[2020-07-06 02:15] LABS: CARBON DIOXIDE 26.1 mmol/L (21-32); CHLORIDE SERUM 106 mmol/L (98-107); CREATININE SERUM 0.8 mg/dL (0.7-1.3); GFR1 > 60 mL/min; GLUCOSE SERUM 118 mg/dL (74-106); POTASSIUM SERUM 4.2 mmol/L (3.5-5.1); SODIUM SERUM 140 mmol/L (136-145)
[2020-07-06 02:20] LABS: ALKALINE PHOSPHATASE 77 U/L (46-116); ALT/SGPT 16 U/L (16-63); AST/SGOT 11 U/L (15-37); BILIRUBIN TOTAL 0.15 mg/dL (0.20-1.00)
[2020-07-06 02:21] LABS: ALBUMIN 3.2 g/dL (3.4-5.0); TOTAL PROTEIN, SERUM 5.9 g/dL (6.4-8.2)
[2020-07-06 06:52] VITALS: BP 104/59
== END 2020-07-06 04:15 | disposition home or self-care (01) ==
LOC: ED 23:51
PROVIDERS: Emergency Medicine
DX: K59.00 Constipation, unspecified (principal); K80.20 Calculus of gallbladder without cholecystitis without obstruction; K21.9 Gastro-esophageal reflux disease without esophagitis; G43.909 Migraine, unspecified, not intractable, without status migrainosus; G89.29 Other chronic pain; Z87.442 Personal history of urinary calculi; Z90.89 Acquired absence of other organs; Z98.890 Other specified postprocedural states; Z88.1 Allergy status to other antibiotic agents
CPT/HCPCS: J1885; J3010; J7030